=== PATIENT | female | born 1995 | race Caucasian/White ===

== ENCOUNTER 2017-06-06 07:11 | Emergency (ER) | payer BC ==
[~2017-06-06] VITALS: Ht 177.8 cm; Wt 65.0 kg
[2017-06-06 07:22] VITALS: BP 127/66; PULSE 70; RESP 16; TEMP 97.2; O2SAT 100
[2017-06-06 08:05] VITALS: BP 124/82; PULSE 74; RESP 18; O2SAT 100
[2017-06-06] MEDS ORDERED: SODIUM CHLOR 0.9% 1000 ML INJ 1,000 ML IV ONE (08:15)
[2017-06-06 08:37] VITALS: BP 109/65; PULSE 68; RESP 18; O2SAT 99
[2017-06-06 08:39] VITALS: BP 113/72; PULSE 71; RESP 18; O2SAT 98
--- NOTE | 2017-06-06 08:39 | PD ---
HPI Chief Complaint: Syncope/Near-Syncope Time Seen by Provider: 08:11 Travel History International Travel<30 days: No Contact w/Intl Traveler<30days: No Traveled to known affect area: No History of Present Illness HPI This is a 21-year-old female with a history of previous syncope, presents today after having a syncopal episode while at the airport. Patient states she was sitting in the boarding lounge when all of a sudden she had a syncopal episode. She states she was watching a TV show that was disturbing. She states that the next thing that happened is that she passed out and when she woke up she had wet herself. There is no reported seizure disorder is no reported seizure activity. The patient denies any other medical history. She does report that her urine has been darker than normal and she may not have been drinking enough fluids over the last several days. She is visiting here from [place]. She denies being . The patient does state that she has had previous fainting episodes and she states that it usually happens when she is giving blood. PFSH Past Medical History Medical History: Denies Significant Hx Tetanus Vaccination: < 5 Years Influenza Vaccination: Yes ?: Not LMP: 05/25/17 Past Surgical History Surgical History: No Previous Surgery Social History Alcohol Use: No Tobacco Use: No Substance Use: No Allergies-Medications (Allergen,Severity, Reaction): Coded Allergies: No Known Allergies (Unverified , 06/06/17) Reported Meds & Prescriptions Reported Meds & Active Scripts Active No Active Prescriptions or Reported Medications Review of Systems Except as stated in HPI: all other systems reviewed are Neg General / Constitutional: No: Fever, Chills Eyes: No: Blurred Vision, Photophobia HENT: No: Headaches, Lightheadedness Cardiovascular: No: Chest Pain or Discomfort, Palpitations Respiratory: No: Cough, Shortness of Breath Gastrointestinal: No: Nausea, Vomiting, Abdominal Pain Genitourinary: Positive: Incontinence, Other (Urine has been darker than normal.), No: Dysuria Musculoskeletal: No: Weakness, Pain Neurologic: Positive: Syncope, Incontinence, No: Weakness, Dizziness, Headache , Seizures Physical Exam Narrative GENERAL: Well-nourished, well-developed patient, in no acute respiratory distress. SKIN: Focused skin assessment warm/dry. HEAD: Normocephalic/atraumatic. EYES: No scleral icterus. No injection or drainage. NECK: Supple, trachea midline. No JVD or lymphadenopathy. CARDIOVASCULAR: Regular rate and rhythm without murmurs, gallops, or rubs. RESPIRATORY: Breath sounds equal bilaterally. No accessory muscle use. GASTROINTESTINAL: Abdomen soft, non-tender, nondistended. MUSCULOSKELETAL: No cyanosis, or edema. NEUROLOGICAL: Awake and alert. Cranial nerves II through XII intact. Motor grossly within normal limits. Five out of 5 muscle strength in all muscle groups. Normal speech. Data Data Last Documented VS Vital Signs Date Time Temp Pulse Resp B/P (MAP) Pulse Ox O2 Delivery O2 Flow Rate FiO2 06/06/17 08:40 71 18 116/73 (87) 97 Room Air 06/06/17 07:22 97.2 Orders Orders Complete Blood Count With Diff (06/06/17 08:11) Basic Metabolic Panel (Bmp) (06/06/17 08:11) Iv Access Insert/Monitor (06/06/17 08:11) Ecg Monitoring (06/06/17 08:11) Oximetry (06/06/17 08:11) Ed Urine Pregnancytest Poc (06/06/17 08:11) Sodium Chlor 0.9% 1000 Ml Inj (Ns 1000 M (06/06/17 08:15) Electrocardiogram (06/06/17 08:42) Labs Laboratory Tests Test 06/06/17 08:30 White Blood Count 6.4 TH/MM3 Red Blood Count 4.33 MIL/MM3 Hemoglobin 13.8 GM/DL Hematocrit 38.7 % Mean Corpuscular Volume 89.5 FL Mean Corpuscular Hemoglobin 31.8 PG Mean Corpuscular Hemoglobin Concent 35.5 % Red Cell Distribution Width 12.7 % Platelet Count 176 TH/MM3 Mean Platelet Volume 10.0 FL Neutrophils (%) (Auto) 69.9 % Lymphocytes (%) (Auto) 19.3 % Monocytes (%) (Auto) 9.2 % Eosinophils (%) (Auto) 1.3 % Basophils (%) (Auto) 0.3 % Neutrophils # (Auto) 4.4 TH/MM3 Lymphocytes # (Auto) 1.2 TH/MM3 Monocytes # (Auto) 0.6 TH/MM3 Eosinophils # (Auto) 0.1 TH/MM3 Basophils # (Auto) 0.0 TH/MM3 CBC Comment DIFF FINAL Differential Comment Blood Urea Nitrogen 13 MG/DL Creatinine 0.80 MG/DL Random Glucose 92 MG/DL Calcium Level 9.1 MG/DL Sodium Level 137 MEQ/L Potassium Level 3.8 MEQ/L Chloride Level 103 MEQ/L Carbon Dioxide Level 25.7 MEQ/L Anion Gap 8 MEQ/L Estimat Glomerular Filtration Rate 91 ML/MIN MDM Medical Decision Making Medical Screen Exam Complete: Yes Emergency Medical Condition: Yes Differential Diagnosis Vasovagal syncope versus metabolic derangement versus dehydration versus anemia versus atypical seizure Narrative Course 21-year-old female had a syncopal episode while waiting for a flight at the airport. The patient has normal orthostatic vital signs. The patient's EKG shows sinus rhythm rate of [address] is [address] acute [address] elevation or depression. There is questionable Q waves noted in the V1 V2. Patient has no cardiac symptoms at this time. I informed the patient of the findings there and will give her copy of her EKG to take home with her in [place]. She is instructed to follow-up with a primary care doctor. She has been given 1 L of IV fluid. She has been ambulated without difficulty. They have a flight later this morning and I instructed her to take it easy and drink plenty fluids. Diagnosis Primary Impression: Syncope Additional Instructions: Follow-up with your primary care physician when you return home to [place]. Drink plenty of fluids. Scripts No Active Prescriptions or Reported Meds Disposition: 01 DISCHARGE HOME Condition: Stable Ramo Garrett MD Jun 06, 2017 08:39
[2017-06-06 08:40] VITALS: BP 116/73; PULSE 71; RESP 18; O2SAT 97
[2017-06-06 09:13] LABS: AUTOMATED NEUTROPHIL # 4.4 TH/MM3 (1.8-7.7); BASOPHIL % 0.3 % (0.0-2.0); EOSINOPHIL # 0.1 TH/MM3 (0-0.4); EOSINOPHIL % 1.3 % (0.0-4.0); HEMATOCRIT 38.7 % (35.0-46.0); HEMOGLOBIN 13.8 GM/DL (11.6-15.3); LYMPH % 19.3 % (9.0-44.0); LYMPHOCYTE # 1.2 TH/MM3 (1.0-4.8); MEAN CELL VOLUME 89.5 FL (80.0-100.0); MEAN CORPUSCULAR HEMOGLOBIN 31.8 PG (27.0-34.0); MEAN CORPUSCULAR HGB CONC 35.5 % (32.0-36.0); MONO % 9.2 % (0.0-8.0); MONOCYTE # 0.6 TH/MM3 (0-0.9); NEUT % 69.9 % (16.0-70.0); PLATELET COUNT 176 TH/MM3 (150-450); RED BLOOD COUNT 4.33 MIL/MM3 (4.00-5.30); RED CELL DISTRIBUTION WIDTH 12.7 % (11.6-17.2); WHITE BLOOD COUNT 6.4 TH/MM3 (4.0-11.0)
[2017-06-06 09:24] LABS: BICARBONATE 25.7 MEQ/L (21.0-32.0); CALCIUM 9.1 MG/DL (8.5-10.1); CREATININE 0.8 MG/DL (0.50-1.00)
--- NOTE | 2017-06-06 19:21 | EKG ---
Date Performed: 06/06/2017 Time Performed: 09:15:11 PTAGE: 21 years EKG: Sinus rhythm WITH MARKED SINUS ARRHYTHMIA SEPTAL MYOCARDIAL INFARCTION ABNORMAL ECG NO PREVIOUS TRACING DOCTOR: Roly Castaneda Interpretating Date/Time 06/06/2017 19:18:24
== END 2017-06-06 10:02 | disposition home or self-care (01) ==
LOC: NEPE 07:11
DX: R55 Syncope and collapse (principal); R94.31 Abnormal electrocardiogram [ECG] [EKG]
CPT/HCPCS: 80048; 84703; 85025; 93005; 99284; J7030